=== PATIENT | male | born 1965 | race Caucasian/White ===

== ENCOUNTER 2017-11-24 01:00 | Emergency (ER) | payer MEDICAID ==
[~2017-11-24] VITALS: Ht 157.5 cm; Wt 70.3 kg
[2017-11-24 01:22] VITALS: BP 130/78
--- NOTE | 2017-11-24 01:27 | NUR ---
Pt ambulated to bed 8 with vss.
[2017-11-24] MEDS ORDERED: NACL 0.9% 1,000 ML IV SCH (01:46)
[2017-11-24] MEDS ORDERED: ONDANSETRON 4 MG/2 ML VIAL IVP ONE (01:50)
[2017-11-24] MEDS ORDERED: KETOROLAC 30 MG/ML VIAL IVP ONE (01:50)
[2017-11-24 01:58] LABS: BASOPHILS % (AUTO) 0.6 % (0.0-2.0); EOSINOPHILS # (AUTO) 0.3 K/uL (0-0.4); EOSINOPHILS % (AUTO) 3.7 % (0.0-4.0); HEMATOCRIT 40.7 % (36-52); HEMOGLOBIN 13.7 g/dL (12.0-18.0); LYMPHOCYTES # (AUTO) 2.4 K/uL (2.0-11.5); LYMPHOCYTES % (AUTO) 33.7 % (20.5-51.1); MEAN CORPUSCULAR HEMOGLOBIN 28 pg (27-31); MEAN CORPUSCULAR HGB CONC 34 g/dL (33-37); MONOCYTES # (AUTO) 0.8 K/uL (0.8-1.0); MONOCYTES % (AUTO) 10.9 % (1.7-9.3); NEUTROPHILS # (AUTO) 3.6 K/uL (1.8-7.7); NEUTROPHILS % (AUTO) 51.1 % (42.2-75.2); PLATELET COUNT (AUTO) 170 K/uL (140-450); RED BLOOD CELL COUNT(AUTO) 4.91 MIL/uL (4.20-6.10); RED CELL DISTRIBUTION WIDTH 13.2 % (11.6-13.7)
--- NOTE | 2017-11-24 02:05 | NUR ---
Pt states right lower back pain radiating to RLQ abd x3 days. No N/V/D. 02/01 pain. Pt aslo states difficulty urinating. NO BRUISING OR REDNESS NOTED TO SITE, PT DENIES TRAUMA TO AREA. PT IS LAYING IN BED APPEARS TO BE IN NO ACUTE DISTRESS AT THIS TIME. PMH HTN
[2017-11-24 02:09] LABS: ANION GAP 10.2 (8-16); CARBON DIOXIDE 27.2 mmol/L (21-32); CREATININE 0.8 mg/dL (0.7-1.3); POTASSIUM 3.4 mmol/L (3.5-5.1)
[2017-11-24 02:14] LABS: ALBUMIN 3.3 g/dL (3.4-5.0); TOTAL BILIRUBIN 0.2 mg/dL (0.0-1.0)
--- NOTE | 2017-11-24 04:00 | NUR ---
PT LAYING IN BED SLEEPING, WILL CONTINUE TO MONITOR.
[2017-11-24 05:15] VITALS: BP 125/72
--- NOTE | 2017-11-24 05:15 | NUR ---
Patient discharged with v/s stable. Written and verbal after care instructions given and explained. Patient alert, oriented and verbalized understanding of instructions. Ambulatory with steady gait. All questions addressed prior to discharge. ID band removed. Patient advised to follow up with PMD. Rx of zofran, motrin given. Patient educated on indication of medication including possible reaction and side effects. Opportunity to ask questions provided and answered.
== END 2017-11-24 05:15 | disposition home or self-care (01) ==
LOC: MED 01:00
DX: R10.30 Lower abdominal pain, unspecified (principal); R11.2 Nausea with vomiting, unspecified
CPT/HCPCS: 36415; 74176; 80053; 81002; 83690; 85025; 96361; 96374; 96375; 99285; J1885; J2405; J7030